=== PATIENT | female | born 1965 | race Caucasian/White ===

== ENCOUNTER 2020-01-09 09:23 | Outpatient (CLI) | payer OTHER, SELFPAY ==
--- NOTE | 2020-01-09 09:33 | ECG_ITS ---
Measurements Intervals [place] Rate: 61 P: 65 ID: [id number] QRS: 35 QRSD: 96 T: 47 QT: 399 QTc: 405 Interpretive Statements SINUS RHYTHM DELAYED PRECORDIAL R/S TRANSITION BASELINE ARTIFACT- I, II, III, AVR, AVL, AVF, V1-V6 BORDERLINE ECG Electronically Signed On 01-09-2020 9:48:29 CDT by Dany Butterfield D.O.
[2020-01-09 09:42] LABS: Hematocrit 45.1 % (37.0-47.0); Hemoglobin 15.2 g/dL (12.0-15.0)
== END 2020-01-09 09:24 | disposition home or self-care (01) ==
LOC: ANHSURGERY 09:25
PROVIDERS: Anesthesiology; PCP Internal Medicine; Visit Provider Surgery Plastic and Reconstructive Surgery
DX: Z01.812 Encounter for preprocedural laboratory examination (principal); Z41.1 Encounter for cosmetic surgery
CPT/HCPCS: 36415; 85014; 85018; 93005

== ENCOUNTER 2020-01-17 03:57 | Outpatient (CLI) | payer OTHER, SELFPAY ==
[2020-01-17 19:05] LABS: SARS-CoV-2 RNA PCR Negative
== END 2020-01-17 03:58 | disposition home or self-care (01) ==
LOC: ANHCOVIDDT 03:57
PROVIDERS: PCP Internal Medicine; Visit Provider Surgery Plastic and Reconstructive Surgery
DX: Z01.812 Encounter for preprocedural laboratory examination (principal); Z20.828 Contact with and (suspected) exposure to other viral communicable diseases
CPT/HCPCS: 87635; C9803; U0003

== ENCOUNTER 2020-01-19 01:34 | Day surgery (SDC) | payer OTHER, SELFPAY ==
[2020-01-05 14:42] VITALS: BMI 26.5
--- NOTE | 2020-01-19 06:35 | P.OP_ITS ---
Procedure Note - Detailed Date of procedure: 01/19/20 Pre-op diagnosis: Acquired Breast Deformity Post-op diagnosis: same Procedure performed: * Right breast implant intact implant removal * Left breast implant implant material removal * Bilateral capsulotomy * Bilateral breast implant placement (Same size approximatly, SoftTouch Silicone) * Bilateral breast fat grafting * Left breast mastopexy Description of procedure: Preoperatively again today we went over the risks, benefits, alternatives in great detail. Want her to be very realistic about the risks involved as well as expectations. Made sure answered all of her questions to her satisfaction and consent obtained. She was marked with her verification of markings. We went over her goals in detail and what we can and cannot accomplish. She was taken to the operating room placed supine on the operating room table. Anesthesia provided by anesthesiology and prepped and draped in a standard sterile fashion. Surgical time-out was taken. A thorough abdominal examination was completed. Stab incisions were made and I used a tumescent solution on the abdomen based on her preoperative markings. Using a 3 mm multi hole cannula suction lipectomy was completed which was in a gravity separation device. I used the central portion with the viable adipose tissue once adequate time had occurred for separation. We then proceeded the breast. 14 gauge needle was used to make stab incisions and a completed fat grafting of bilateral breast based on her preoperative markings to desired goals. Once I was happy with the fat grafting 15 blade used to make an incision on the right through her previous scar on the left a vertical scar to remove that excess inferior pole laxity. We continued down to the implants were identified removed. I completed bilateral capsulotomy use as necessary based on her preoperative planning of positioning as well as change in implants. I verified the previous implants placed. These were estimated to be 400cc fill. I irrigated with more than 3 L of saline on TUR tubing. Verified strict hemostasis. Using a no-touch technique and a Todd funnel I 1st irrigated the pocket with triple antibiotic Betadine containing solution. Wash my gloves. The implant was introduced into the pocket closed with 2-0 Vicryl followed by 3- 0 Monocryl. On the left I tailor tacked the inferior pole into place and placed her in a sitting position. I verified my markings on the left resected that vertical aspect of the laxity in order to complete the left breast mastopexy. I then closed with 2-0 Vicryl followed by 3-0 Monocryl in a running subcuticular 4-0 Monocryl and tissue glue. Surgical bra was placed. She was woken taken to the PACU without difficulty. All instrument sponge counts were correct at the end of the case. Anesthesia: GLMA Surgeon: Gabriel Bolton MD Estimated blood loss (mL): 20 Drains: No Packing: No Pathology: yes (Left breast tissue (vertical mastopexy tissue)) Complications: No immediate complications Condition: stable Disposition: PACU Findings: Current implant: Siltex Contour Profile Spectrum adjustable saline filled implants [id number] Vol 275cc Width 11.5 Height 9.5 Proj 5.1. Max 330cc Wdith 11.1, Height 9.3 Proj 6.3 (reported fill 400). New implants: 415cc MySQLan SoftTouch Implants. Right REF# [id number] Left REF# [id number]
--- NOTE | 2020-01-19 08:41 | WPDANESEPPF ---
Anes - Initial Pre Proc Eval Procedure: Operation Date: 01/19/20 10:30 Proposed Procedures p Bilateral Breast Implant Exchange - Gabriel Bolton MD s Bilateral Breast Fat Grafting - Gabriel Bolton MD s Left Breast Mastopexy - Gabriel Bolton MD Date/Time: 01/19/20 08:41 Surgeon: Gabriel Bolton MD Pre Op Diagnosis: Acquired Breast Deformity Patient Data Age: 54 Gender: F Height: 5 ft 2 in Weight: 65.77 kg Allergies Allergy/AdvReac Type Severity Reaction Status Date / Time methylprednisolone Allergy Mild Rash Verified 01/19/20 09:39 prednisone Allergy Unknown Rash Verified 01/19/20 09:39 Home Medications Medication Instructions Recorded Confirmed Type multivitamin 1 tablet PO DAILY 03/15/19 01/19/20 History calcium carbonate [Calcium 600] 600 mg PO DAILY 01/05/20 01/19/20 History cholecalciferol (vitamin D3) 10 mcg PO DAILY 01/05/20 01/19/20 History [Vitamin D3] potassium gluconate 500 mg PO DAILY 01/05/20 01/19/20 History rosuvastatin 20 mg PO DAILY 01/05/20 01/19/20 History docusate sodium 100 mg capsule 100 mg PO BID #14 cap 01/10/20 01/19/20 Rx hydrocodone 5 mg-acetaminophen 325 1 tablet PO Q6H PRN #15 tablet 01/10/20 01/19/20 Rx mg tablet ondansetron HCl 4 mg tablet 4 mg PO Q6H PRN #30 tablet 01/10/20 01/19/20 Rx Patient hx anesthesia problems: none Family hx anesthesia problems: none PMFSH Past Medical History Medical History (Updated 01/19/20 @ 08:41 by Jake Davis MD) Anxiety Dyslipidemia History of breast cancer Surgical History Surgical History (Updated 11/22/19 @ 13:04 by Gabriel Bolton MD) History of breast reconstruction L 2006, R 2008 History of dilatation and curettage x3 History of hysterectomy 2009 History of mastectomy 2006, 2008 History of tonsillectomy Family History Family History Other Carcinoma of colon Family history of malignant neoplasm of breast in first degree relative Social History Social History (Reviewed 11/22/19 @ 10:02 by ROLANDO Hinkle Smoking status: Never smoker Alcohol intake: current Drinks per week: 18 Anes - Eval Final PreProcedure Day of Procedure 01/19/20 08:41 Patient weight: normal Heart: regular rate and rhythm Lungs: clear to auscultation Airway: Mallampati scale class II Neurological: alert and oriented Last oral intake: >/= 8 hours ASA classification: III Emergent: no Anesthetic plan: proceed Anesthesia type and monitoring: general LMA and standard monitoring Informed Consent: The patient's anesthetic plan and its attendant risks and benefits were discussed with the patient/family/POA. Questions were solicited and answers provided to the satisfaction of the patient/family/POA.
[2020-01-19] MEDS: LACTATED RINGERS 1,000 ML 30 ML IV CONT ×2 (09:00→13:53)
[2020-01-19 09:05] LABS: Urine Cotinine NEGATIVE
--- NOTE | 2020-01-19 10:20 | WPDHPUPDATE1 ---
History and Physical Update Update Date/Time: 01/19/20 10:20 History and Physical has been reviewed, including an updated exam of the patient. There are NO changes in the patient's condition. Risks, benefits, and alternatives have been discussed and questions answered. Patient agrees to proceed with procedure.
[2020-01-19] MEDS: ceFAZolin 2 GM/D5W 50 ML 2 GM/50 ML BAG IVPB (10:58)
[2020-01-19 13:53] VITALS: BP 123/72; PULSE 95; RESP 14; TEMP 36.2; O2SAT 100
[2020-01-19 14:05] VITALS: BP 116/72; PULSE 80; RESP 17; O2SAT 100
[2020-01-19] MEDS: fentaNYL CITRATE INJ (*CRX) 100 MCG/2 ML VIAL 25 MCG IV PUSH ×2 (14:11→14:22)
[2020-01-19 14:20] VITALS: BP 124/63; PULSE 63; RESP 11; O2SAT 97
[2020-01-19 14:35] VITALS: BP 121/73; PULSE 69; RESP 13; O2SAT 97
[2020-01-19 14:43] VITALS: BP 130/72; PULSE 63
[2020-01-19 15:15] VITALS: BP 129/74; PULSE 63
== END 2020-01-19 15:30 | disposition home or self-care (01) ==
PROVIDERS: PCP Internal Medicine; Visit Provider Surgery Plastic and Reconstructive Surgery
PROC: (CPT 19342; principal; 2020-01-19 10:30)
PROC: (CPT 15769; 2020-01-19 10:30)
PROC: (CPT 19316; 2020-01-19 10:30)
DX: N65.0 Deformity of reconstructed breast (principal); Z85.3 Personal history of malignant neoplasm of breast; Z90.13 Acquired absence of bilateral breasts and nipples; E78.5 Hyperlipidemia, unspecified; F41.9 Anxiety disorder, unspecified; Z79.899 Other long term (current) drug therapy
CPT/HCPCS: 19380; 80307; 88305; J0171; J0690; J1170; J1580; J2250; J2370; J2405; J2704; J3010; J7030; J7120

== ENCOUNTER → 2020-04-11 07:15 | Outpatient (CLI) | payer OTHER, SELFPAY ==
--- NOTE | ~2020-04-11 | XR_ITS ---
EXAMINATION: XR hand BI arthritis min 3V DATE: 04/11/2020 08:03 INDICATION: Bilateral hand arthralgia. TECHNIQUE: 4 views of right hand and 4 views of left hand on a total of 7 radiographs were obtained. COMPARISON: None. FINDINGS: RIGHT HAND: Bone alignment is normal. No fracture. There is mild osteoarthritis of third metacarpopha langeal joint and fourth and fifth distal interphalangeal joints. LEFT HAND: Bone alignment is normal. No fracture. There is mild osteoarthritis of first interphalange al joint. IMPRESSION: 1. Mild polyarticular osteoarthritis. Reviewed, dictated and finalized at location A. TECHNICIAN
--- NOTE | ~2020-04-11 | XR_ITS ---
EXAMINATION: XR knee LT 3V DATE: 04/11/2020 08:03 INDICATION: Left knee arthralgia. TECHNIQUE: 3 views of left knee were obtained. COMPARISON: None. FINDINGS: Bone alignment is normal. No fracture. There is mild tricompartmental osteoarthritis. There is a small knee joint effusion. IMPRESSION: 1. Mild left knee osteoarthritis. 2. Small left knee joint effusion. Reviewed, dictated and finalized at location A. ECTION ADVISOR
--- NOTE | ~2020-04-11 | XR_ITS ---
EXAMINATION: XR knee RT 3V DATE: 04/11/2020 08:03 INDICATION: Right knee arthralgia. TECHNIQUE: 3 views of right knee were obtained. COMPARISON: None. FINDINGS: Bone alignment is normal. No fracture. There is mild tricompartmental osteoarthritis. There is a small knee joint effusion. IMPRESSION: 1. Mild right knee osteoarthritis. 2. Small right knee joint effusion. Reviewed, dictated and finalized at location A. NG ROOM HELPER
== END ==
PROVIDERS: PCP Internal Medicine; Visit Provider Internal Medicine
DX: E78.2 Mixed hyperlipidemia (principal); M19.041 Primary osteoarthritis, right hand; M19.042 Primary osteoarthritis, left hand; M17.0 Bilateral primary osteoarthritis of knee; M25.462 Effusion, left knee; M25.461 Effusion, right knee
CPT/HCPCS: 73130; 73562

== ENCOUNTER → 2020-05-07 03:43 | Outpatient (CLI) | payer OTHER, SELFPAY ==
[2020-05-08 18:18] LABS: SARS-CoV-2 RNA PCR Negative
== END ==
PROVIDERS: PCP Internal Medicine; Visit Provider Surgery Plastic and Reconstructive Surgery
DX: Z01.812 Encounter for preprocedural laboratory examination (principal); Z20.822 Contact with and (suspected) exposure to COVID-19
CPT/HCPCS: C9803; U0003; U0005

== ENCOUNTER 2020-05-10 01:15 | Day surgery (SDC) | payer OTHER, SELFPAY ==
[2020-05-06 16:01] VITALS: BMI 27.5
[2020-05-10] VITALS (8 sets, daily range): BP systolic 105–123; BP diastolic 57–98; PULSE 57–81; RESP 12–16; TEMP 36.2–36.8; O2SAT 96–100; BMI 27.1
[2020-05-10] MEDS: LACTATED RINGERS 1,000 ML 30 ML IV CONT ×2 (09:39→12:40)
--- NOTE | 2020-05-10 09:39 | SUR.PREOP ---
PT STATES OK TO USE LEFT ARM FOR BP'S AND NEEDLESTICK
[2020-05-10 09:45] LABS: Urine Cotinine NEGATIVE
--- NOTE | 2020-05-10 10:22 | WPDHPUPDATE1 ---
History and Physical Update Update Date/Time: 05/10/20 10:22 History and Physical has been reviewed, including an updated exam of the patient. There are NO changes in the patient's condition. Risks, benefits, and alternatives have been discussed and questions answered. Patient agrees to proceed with procedure.
--- NOTE | 2020-05-10 10:32 | PM.PROC ---
Procedure Note - Detailed Date of procedure: 05/10/20 Pre-op diagnosis: Hx Breast CA Acquired breast deformity Post-op diagnosis: same Procedure performed: 1. Fat grafting right breast ___ cc (harvest site upper abdomen / bilaterall lateral thighs) 2. Right breast implant exchange 3. Right breast lateral popcorn capsulorrhaphy Description of procedure: Patient was marked in the preoperative holding area with her verification. Risks, benefits, alternatives were again discussed extensively. I want her to be realistic about the risks involved as well as expectations. Discussed aftercare. What monitor for. All questions answered to her satisfaction and consent obtained. She was taken to the operating room placed supine on the operating room table. Anesthesia was provided by anesthesiology and she was prepped and draped in a standard sterile fashion. Surgical time-out was taken. Stab incisions were made at the abdomen as well as the thighs and a tumescent solution was utilized. Once adequate time for hemostasis using a 3 mm multi hole cannula completed suction lipectomy to a gravity separation device. This was in multiple planes and passes to a smooth rolling pinch based on her preoperative assessment. Once adequate time for separation of the adipose tissue I used the central portion of the adipose tissue. This was injected in multiple planes and passes on the right breast after making a puncture with a 14 gauge needle and using a 3 mm single hole cannula. Fifteen blade used to excise the lateral aspect of the previous scar. Dissection was continued down and the implant was identified. It was removed. I irrigated with 1 L of saline on TUR tubing. Today she commented that she had some lateral migration when supine which I was able to appreciate. As such did popcorn capsulorrhaphy on the right lateral breast. I then irrigated with triple antibiotic Betadine solution. Using a no-touch technique and a Todd funnel the implant was introduced into the pocket. This was closed with 2-0 Vicryl followed by 3-0 Monocryl in a running subcuticular 4-0 Monocryl and tissue glue. She was awoken and taken to the PACU without difficulty. All instrument sponge counts were correct at the end the case. Anesthesia: GLMA Surgeon: Gabriel Bolton MD Estimated blood loss (mL): 10 Drains: No Packing: No Pathology: none sent Complications: No immediate complications Condition: stable Disposition: PACU Findings: Right implant:
--- NOTE | 2020-05-10 10:38 | WPDANESEPPF ---
Anes - Initial Pre Proc Eval Procedure: Operation Date: 05/10/20 11:00 Proposed Procedures p Right Breast Implant Exchange - Gabriel Bolton MD s Right Breast Fat Grafting - Gabriel Bolton MD Date/Time: 05/10/20 10:38 Surgeon: Gabriel Bolton MD Pre Op Diagnosis: Hx Breast CA Patient Data Age: 54 Gender: F Height: 5 ft 1 in Weight: 65 kg Last Vital Signs Temp 97.2 F L 05/10/20 09:40 Pulse 73 05/10/20 09:40 Resp 16 05/10/20 09:40 BP 105/66 05/10/20 09:40 Pulse Ox 100 05/10/20 09:40 Allergies Allergy/AdvReac Type Severity Reaction Status Date / Time methylprednisolone Allergy Mild Rash Verified 05/10/20 09:12 prednisone Allergy Mild Rash Verified 05/10/20 09:12 Home Medications Medication Instructions Recorded Confirmed Type multivitamin 1 tablet PO DAILY 03/15/19 05/10/20 History calcium carbonate [Calcium 600] 600 mg PO DAILY 01/05/20 05/10/20 History cholecalciferol (vitamin D3) 10 mcg PO DAILY 01/05/20 05/10/20 History [Vitamin D3] potassium gluconate 500 mg PO DAILY 01/05/20 05/10/20 History rosuvastatin 20 mg PO DAILY 01/05/20 05/10/20 History Bifidobacterium infantis [Align] 4 mg PO DAILY 05/06/20 05/10/20 History docusate sodium 100 mg capsule 100 mg PO BID #14 cap 05/06/20 Rx hydrocodone 5 mg-acetaminophen 325 1 tablet PO Q6H PRN #15 tablet 05/06/20 05/06/20 Rx mg tablet ondansetron HCl 4 mg tablet 4 mg PO Q6H PRN #30 tablet 05/06/20 Rx Laboratory Tests 05/10/20 09:22 Cotinine Negative Patient hx anesthesia problems: none Family hx anesthesia problems: none PMFSH Past Medical History Medical History Anxiety Dyslipidemia History of breast cancer Surgical History Surgical History History of breast reconstruction L 2006, R 2008 History of dilatation and curettage x3 History of hysterectomy 2009 History of mastectomy 2006, 2008 History of tonsillectomy Family History Family History Other Carcinoma of colon Family history of malignant neoplasm of breast in first degree relative Social History Social History Smoking status: Never smoker Second hand tobacco smoke exposure: No Alcohol intake: current Drinks per week: 2 Substance use: never Living arrangements: alone Spiritual care concerns: No Anes - Eval Final PreProcedure Day of Procedure 05/10/20 10:38 Patient weight: normal Heart: regular rate and rhythm Lungs: clear to auscultation Airway: Mallampati scale class II Neurological: alert and oriented Last oral intake: >/= 8 hours ASA classification: III Emergent: no Anesthetic plan: proceed Anesthesia type and monitoring: general LMA and standard monitoring Informed Consent: The patient's anesthetic plan and its attendant risks and benefits were discussed with the patient/family/POA. Questions were solicited and answers provided to the satisfaction of the patient/family/POA.
[2020-05-10] MEDS: ceFAZolin 2 GM/D5W 50 ML 2 GM/50 ML BAG IVPB (11:00)
[2020-05-10] MEDS: fentaNYL CITRATE INJ (*CRX) 100 MCG/2 ML VIAL 25 MCG IV PUSH (13:03)
[2020-05-10] MEDS: oxyCODONE HCL (*CRX) 5 MG TAB IR PO (14:09)
== END 2020-05-10 14:30 | disposition home or self-care (01) ==
PROVIDERS: PCP Internal Medicine; Visit Provider Surgery Plastic and Reconstructive Surgery
PROC: (CPT 19342; principal; 2020-05-10 11:00)
PROC: (CPT 15769; 2020-05-10 11:00)
DX: N65.0 Deformity of reconstructed breast (principal); Z85.3 Personal history of malignant neoplasm of breast; Z90.13 Acquired absence of bilateral breasts and nipples; E78.5 Hyperlipidemia, unspecified; F41.9 Anxiety disorder, unspecified; Z79.899 Other long term (current) drug therapy
CPT/HCPCS: 19380; 80307; 88305; A9270; C9803; J0171; J0690; J1580; J2250; J2405; J2704; J3010; J7120; U0003; U0005

== ENCOUNTER 2020-06-03 12:58 | Outpatient (CLI) | payer OTHER, SELFPAY | END 2020-06-03 12:59 | disposition home or self-care (01) | LOC: ANHCOVIDVC 12:58 | PROVIDERS: PCP Internal Medicine | DX: Z23 Encounter for immunization (principal) | CPT/HCPCS: 0001A; 91300 ==

== ENCOUNTER 2020-06-24 13:16 | Outpatient (CLI) | payer OTHER, SELFPAY | END 2020-06-24 13:17 | disposition home or self-care (01) | LOC: ANHCOVIDVC 13:16 | PROVIDERS: PCP Internal Medicine | DX: Z23 Encounter for immunization (principal) | CPT/HCPCS: 0002A; 91300 ==

== ENCOUNTER 2021-01-27 08:31 | Outpatient (CLI) | payer OTHER, SELFPAY ==
--- NOTE | ~2021-01-27 | CT_ITS ---
EXAMINATION: CT sinus wo con DATE: 01/27/2021 08:43 INDICATION: Right-sided maxillary sinus pain TECHNIQUE: Computed tomography (CT) of the paranasal sinuses was performed without intravenous contra st. The dose-length product (DLP) was 289.66 mGy-cm. Iterative reconstruction was used. COMPARISON: None FINDINGS: There are changes of bilateral maxillary sinus surgery. There is nearly complete opacificat ion of the right maxillary sinus. The paranasal sinuses are otherwise clear. There is partial opacifi cation of the right mastoid air cells. The left mastoid air cells are clear. Visualized soft tissues are unremarkable. IMPRESSION: 1. Right maxillary sinusitis. 2. Right mastoiditis. Reviewed, dictated and finalized at location B.
== END 2021-01-27 08:32 | disposition home or self-care (01) ==
LOC: ANHIMG 08:33
PROVIDERS: PCP Internal Medicine; Visit Provider Otolaryngology
DX: J32.0 Chronic maxillary sinusitis (principal); J34.89 Other specified disorders of nose and nasal sinuses; R09.81 Nasal congestion; J34.2 Deviated nasal septum; J34.3 Hypertrophy of nasal turbinates
CPT/HCPCS: 70486

== ENCOUNTER 2021-02-26 08:04 | Outpatient (CLI) | payer OTHER, SELFPAY ==
--- NOTE | 2021-02-26 08:15 | ECG_ITS ---
Measurements Intervals [place] Rate: 63 P: 68 MS: 170 QRS: 32 QRSD: 89 T: 48 QT: 399 QTc: 411 Interpretive Statements SINUS RHYTHM BORDERLINE R WAVE PROGRESSION, ANTERIOR LEADS BASELINE ARTIFACT- I, II, III, AVR, AVL, AVF, V6 BORDERLINE ECG Electronically Signed On 02-26-2021 8:31:48 AMMONIA BOX OPERATOR by Dany Butterfield D.O.
== END 2021-02-26 08:05 | disposition home or self-care (01) ==
LOC: ANHSURGERY 08:08
PROVIDERS: PCP Internal Medicine; Visit Provider Otolaryngology
DX: Z01.810 Encounter for preprocedural cardiovascular examination (principal); E78.00 Pure hypercholesterolemia, unspecified
CPT/HCPCS: 93005

== ENCOUNTER 2021-03-04 01:50 | Day surgery (SDC) | payer OTHER, SELFPAY ==
[2021-02-19 09:30] VITALS: BMI 26.5
--- NOTE | 2021-02-19 09:41 | PC.NURSE ---
Report to the Outpatient Waiting Room, entrance under the green pavilion located off [facility], at time 8:15 on date 03/04/21. OR Time: 10:15. - You and your visitor will be asked a series of questions to screen for COVID 19 for your protection. - A mask is required within the hospital. - Only one visitor is allowed at this time. Patient visitors will be guided where to wait when not with patient. Preoperative COVID Testing Requirements: No COVID Test needed if: (proof is required; if not received patient will have Rapid Test prior to entry) - Patient has received COVID Vaccine at least 14 days prior to procedure date or - Patient has positive COVID test result within last 90 days of surgery date. COVID Test needed if above criteria is not met If not COVID vaccinated a COVID test must be conducted within 72 hours of surgery and patient is asked to isolate self from time of testing until procedure. You will go to the [facility] for your COVID testing. The [facility] is located at the corner of [address] [facility]. You will only be called if COVID results are positive and your surgeon may reschedule your elective surgery date. Patients may have clear liquids (water, carbonated beverages, clear teas, apple juice) until 3 hours prior to surgery with a maximum of 20 ounces. - No food from midnight until time of surgery - Infants may have breast milk until 4 hours before surgery, infant formula 6 hours prior to surgery. - Children will be allowed to drink immediately following surgery. If applicable, please bring a bottle or sippy cup to assist with drinking. Juice, water, soda, and popsicles are readily available. For infants on formula, please bring formula the day of surgery. Pacifiers are allowed. Take the following medications with a SIP of water the morning of surgery: DULOXETINE Medications to discontinue per physician: VITAMINS/SUPPLEMENTS Date to take last dose: 02/28/21 Please no make-up, nail ku[place]i, hairspray, perfume, deodorant, or body powder the day of surgery. No jewelry (including any body piercings) or valuables the day of surgery, leave them at home. Please take a shower or bath the night before, or the morning of, surgery with an antibacterial soap. Wear comfortable, loose fitting clothing. Children are encouraged to wear pajamas. - Jewelry must be removed prior to entering the operating room. Rings and piercings that are not removed may be cut off. - The hospital will not accept responsibility for valuables. - Please leave all valuables, including medications, at home the day of surgery. If you are going home after surgery, a licensed roll off driver must drive you home. - NO public transportation without another adult. - We recommend that an adult stay with you for 24 hours following discharge. - We also recommend that you do not drive, make important decision, drink alcoholic beverages, or take any drugs that were not prescribed by your health care provider for at least 24 hours after your discharge time. For Pediatric surgeries, we recommend two adults accompany the child home (only one inside the building at this time). Follow any additional instructions given to you from your surgeon. Telephone instructions given to JUANITA RAMAN and asked if any additional questions and then verbalized understanding. Patient advised to call surgeon office or pre surgery nurse liaison [phone] if any additional questions.
--- NOTE | 2021-03-03 07:46 | PM.IMHP ---
H&P: HPI History of Present Illness Date/Time: 03/03/21 07:46 Chief Complaint: Nasal obstruction, nasal congestion, right maxillary sinusitis left sofía bullosa Narrative: patient presents for planned surgical procedures, no change in symptoms no change in history Review of Systems Constitutional: Constitutional: Denies fatigue, Denies fever(s) and Denies lethargy Eyes: Eyes: Denies blurry vision and Denies change in vision ENT: Reports as per HPI Cardiovascular: Cardiovascular: Denies chest pain Respiratory: Respiratory: Denies cough Endocrine: Endocrine: Denies fatigue Hematologic/Lymphatic: Hematologic/Lymphatic: Denies easy bleeding, Denies easy bruising and Denies lymphadenopathy Allergic/Immunologic: Allergic/Immunologic: Denies seasonal rhinorrhea PMFSH Past Medical History Medical History Anxiety Dyslipidemia History of breast cancer Surgical History Surgical History History of breast reconstruction L 2006, R 2008 History of dilatation and curettage x3 History of hysterectomy 2009 History of mastectomy 2006, 2008 History of tonsillectomy Family History Family History Mother Carcinoma of colon Other Family history of malignant neoplasm of breast in first degree relative Social History Social History Smoking status: Never smoker Second hand tobacco smoke exposure: No Alcohol intake: current Drinks per week: 12 Alcohol use details: RARE Substance use: never Substance use type: does not use Spiritual care concerns: No Meds Home Medications and Allergies Home Medications Medication Instructions Recorded Confirmed Type multivitamin 1 tablet PO DAILY 03/15/19 02/19/21 History calcium carbonate 500 mg calcium 500 mg PO DAILY 08/23/20 02/19/21 History (1,250 mg) tablet cholecalciferol (vitamin D3) 25 25 mcg PO DAILY 08/23/20 02/19/21 History mcg (1,000 unit) capsule duloxetine 60 mg capsule,delayed 60 mg PO DAILY 90 Days #90 cap 08/23/20 02/19/21 Rx release rosuvastatin 20 mg tablet See Rx Instructions .ROUTE 02/10/21 02/19/21 Rx .COMPLEX #90 tablet gabapentin 300 mg PO HS 02/19/21 02/19/21 History Allergies Allergy/AdvReac Type Severity Reaction Status Date / Time methylprednisolone Allergy Mild Rash Verified 02/19/21 09:27 prednisone Allergy Mild Rash Verified 02/19/21 09:27 Exam Const: General: cooperative, healthy appearing, comfortable, well developed and alert HENMT: Head: normal to inspection, normocephalic and atraumatic Ears: hearing grossly normal bilaterally, external ears normal, TM's normal bilaterally and EAC's normal General nose exam: Normal external nose present, Normal nares present, No nasal polyps present, Normal nasal mucous membranes and turbinates present and abnormal septum ( mild septal deviation) Face and sinus: normal facial exam Mouth: Yes Normal oral and palatal mucosa present, Yes lip normal, Yes tongue normal, Yes oropharynx normal and Yes moist mucous membranes Teeth and gingiva: dentition normal and gingiva normal Throat: posterior oropharynx normal, tonsils normal and uvula midline Eyes: General: appearance normal, both eyes and all related structures Periorbital: periorbital findings normal Eyelids: eyelids normal Conjunctivae: conjunctivae normal Sclera: sclerae normal Neck: Neck: normal visual inspection, full ROM and no lymphadenopathy Thyroid: thyroid normal Lymphatic: no lymphadenopathy noted Resp: Effort & Inspection: normal respiratory effort and able to speak in complete sentences Cardio: Jugular venous distension: no JVD Neuro: Cranial nerves: Yes CN's II-XII intact bilaterally Assessment and Plan Assessment and plan (1) Sensation of fullness in right ear: Code(s): H93.8
[2021-03-04] VITALS (8 sets, daily range): BP systolic 117–137; BP diastolic 66–83; PULSE 60–70; RESP 12–15; TEMP 36.3–37.2; O2SAT 99–100
--- NOTE | 2021-03-04 07:09 | WPDHPUPDATE1 ---
History and Physical Update Update Date/Time: 03/04/21 07:09 History and Physical has been reviewed, including an updated exam of the patient. There are NO changes in the patient's condition. Risks, benefits, and alternatives have been discussed and questions answered. Patient agrees to proceed with procedure.
[2021-03-04] MEDS: ACETAMINOPHEN 500 MG TABLET 1000 MG PO (08:59)
[2021-03-04] MEDS: LACTATED RINGERS 1,000 ML 30 ML IV CONT ×2 (09:16→11:28)
--- NOTE | 2021-03-04 10:15 | WPDANESEPPF ---
Anes - Initial Pre Proc Eval Procedure: Operation Date: 03/04/21 10:15 Proposed Procedures p Right Maxillary Antrostomy with Tissue Removal, Left Resection Mily Bullosa - Evan Rouse MD Date/Time: 03/04/21 10:15 Surgeon: Evan Rouse MD Pre Op Diagnosis: Chronic Sinusitis Patient Data Age: 55 Gender: F Height: 1.57 m Weight: 65.77 kg Last Vital Signs Temp 37.2 C 03/04/21 09:23 Pulse 64 03/04/21 09:23 BP 117/68 03/04/21 09:23 Pulse Ox 100 03/04/21 09:23 Allergies Allergy/AdvReac Type Severity Reaction Status Date / Time methylprednisolone Allergy Mild Rash Verified 02/19/21 09:27 prednisone Allergy Mild Rash Verified 02/19/21 09:27 Home Medications Medication Instructions Recorded Confirmed Type multivitamin 1 tablet PO DAILY 03/15/19 03/04/21 History calcium carbonate 500 mg calcium 500 mg PO DAILY 08/23/20 03/04/21 History (1,250 mg) tablet cholecalciferol (vitamin D3) 25 25 mcg PO DAILY 08/23/20 03/04/21 History mcg (1,000 unit) capsule duloxetine 60 mg capsule,delayed 60 mg PO DAILY 90 Days #90 cap 08/23/20 03/04/21 Rx release rosuvastatin 20 mg tablet See Rx Instructions .ROUTE 02/10/21 03/04/21 Rx .COMPLEX #90 tablet gabapentin 300 mg PO HS 02/19/21 03/04/21 History Patient hx anesthesia problems: none Family hx anesthesia problems: none Results Review: All pre-operative results and documents have been reviewed as part of the pre-operative evaluation. [facility] Past Medical History Medical History Anxiety Arthritis Depression Dyslipidemia History of breast cancer Surgical History Surgical History History of breast reconstruction L 2006, R 2008 History of dilatation and curettage x3 History of hysterectomy 2009 History of mastectomy 2006, 2008 History of tonsillectomy Family History Family History Mother Carcinoma of colon Other Family history of malignant neoplasm of breast in first degree relative Social History Social History Smoking status: Never smoker Second hand tobacco smoke exposure: No Alcohol intake: current Drinks per week: 12 Alcohol use details: RARE Substance use: never Substance use type: does not use Living arrangements: with family Spiritual care concerns: No Anes - Eval Final PreProcedure Day of Procedure 03/04/21 10:15 Patient weight: normal Heart: regular rate and rhythm Lungs: clear to auscultation Airway: Mallampati scale class 1 Neurological: alert and oriented Last oral intake: >/= 8 hours ASA classification: III Emergent: no Anesthetic plan: proceed Anesthesia type and monitoring: general ETT and standard monitoring Results Review: All pre-operative results and documents have been reviewed as part of the pre-operative evaluation. Informed Consent: The patient's anesthetic plan and its attendant risks and benefits were discussed with the patient/family/POA. Questions were solicited and answers provided to the satisfaction of the patient/family/POA.
[2021-03-04] MEDS: ceFAZolin 2 GM/D5W 50 ML 2 GM/50 ML BAG IVPB (10:37)
[2021-03-04] MEDS: OXYMETAZOLINE HCL 0.05% NAS 15 ML BTL (*BKC) 1 SPRAY NASAL (11:29)
--- NOTE | 2021-03-04 11:32 | W.PM.PROC2 ---
Procedure Note - Detailed Date of Procedure 03/04/21 Pre-op Diagnosis Chronic Sinusitis, nasal obstruction, osfía bullosa Post-op Diagnosis other (Allergic fungal sinusitis) Procedure Performed 1. Endoscopic resection of left sofía bullosa 2. Right revision endoscopic maxillary antrostomy with tissue removal 3. Right middle turbinectomy Surgeon Evan Rouse MD Anesthesia general Indications See above Findings Large left middle turbinate nicely resected in form of resection of sofía. Copious amounts of allergic fungal sinusitis debris in the right maxillary sinus irrigated until complete removal completely scarred over right middle turbinate resected excellent hemostasis procedure Description of Procedure Patient correctly identified. Consent verified. Patient brought to operating room. Imaging reviewed. Time-out performed. General anesthesia induced and an endotracheal tube was secured in the airway and taped to the left lower lip. Patient prepped and draped for the aforementioned procedure. Second time-out performed. Afrin-soaked pledgets placed in the bilateral nasal passages and allowed to sit for 5 minutes and then were removed. 0 degree endoscope utilized. 2 cc of 1% lidocaine with 1 100,000 parts epinephrine injected into the left sofía resected with a sickle blade straight through cut and microdebrider with 4 mm tri cut blade. Afrin pledget placed lateral to the middle turbinate on the left the right-sided examined with the aforementioned findings in the findings section noted. Middle turbinate resected with straight through cut prior to this it was injected with 1 cc of 1% lidocaine with 1 100,000 parts epinephrine the stump of the middle turbinate was cauterized with Bovie suction electrocautery at a setting of 10 no bleeding was noted following cautery. The right maxillary antrostomy was widened using straight through cuts backbiter and microdebrider it was ensured to connect to the natural os. There were copious amounts of infectious debris which were micro debrided and suctioned out the maxillary sinus was then copiously irrigated until no further debris remained. The bilateral nasal passages were suctioned to the posterior choana all pledgets removed and accounted for. This marked the end of the procedure. I performed all dictated portions. Total blood loss approximately 10-15 cc. There were no complications. Care the patient was turned over to Anesthesiology. Estimated Blood Loss 15 Drains No Packing No Pathology none sent Complications No immediate complications Condition stable Disposition PACU
[2021-03-04] MEDS: fentaNYL CITRATE INJ (*CRX) 100 MCG/2 ML VIAL 25 MCG IV PUSH ×2 (12:04→12:07)
--- NOTE | 2021-03-04 12:17 | SUR.PHASEI ---
1212: Simple mask removed.
== END 2021-03-04 13:20 | disposition home or self-care (01) ==
PROVIDERS: PCP Internal Medicine; Visit Provider Otolaryngology
PROC: (CPT 31267; principal; 2021-03-04 10:15)
DX: J32.9 Chronic sinusitis, unspecified (principal); J34.89 Other specified disorders of nose and nasal sinuses; E78.5 Hyperlipidemia, unspecified; F41.8 Other specified anxiety disorders; Z85.3 Personal history of malignant neoplasm of breast
CPT/HCPCS: 31267; 31240; 30999; 93005; A9270; J0330; J0690; J1100; J1170; J2250; J2405; J2704; J3010; J7120